=== PATIENT | male | born 2000 | race Caucasian/White ===

== ENCOUNTER 2024-01-24 09:49 | Emergency (ER) | payer BC, SELFPAY ==
[2024-01-24 09:54] VITALS: BP 134/81; PULSE 94; RESP 16; TEMP 36.9; O2SAT 96; BMI 30.8
--- NOTE | 2024-01-24 10:17 | CRLHL7_ITS ---
For Patients: As a result of the Cures Act, medical imaging exams and procedure reports are released immediately into your electronic medical record. You may view this report before your referring provider. If you have questions, please contact your health care provider. INDICATION: Cat bite. TECHNIQUE: Three views of the left hand. FINDINGS: Soft tissue swelling in the hand. No fracture, dislocation, radiopaque foreign body, or subcutaneous gas identified. Dictated by Larry Mejias MD @ 01/24/2024 11:01:38 AM (Electronically Signed)
[2024-01-24 10:37] LABS: Basophils Absolute Auto 0.03 K/uL (0.00-0.30); Basophils Percent Auto 0.5 % (0.0-3.0); Eosinophils Absolute Auto 0.01 K/uL (0.00-0.50); Eosinophils Percent Auto 0.2 % (0.0-7.0); Hematocrit 47.7 % (37.0-53.0); Hemoglobin* 15.8 gm/dL (13.5-17.5); Lymphocytes Percent Auto 15.7 % (20-44); Mean Corpuscular HGB Conc 33 gm/dL (32-36); Mean Corpuscular Hemoglobin 30 pg (26-34); Mean Corpuscular Volume 91 fL (80-100); Monocytes Percent Auto 17.4 % (0.0-11.0); Neutrophils Absolute Auto 4.14 K/uL (1.7-7.0); Neutrophils Percent Auto 66.2 % (42.0-72.0); Platelet Count* 159 K/uL (140-440); RDW Coefficient of Variation % 12.2 % (11.5-15.5); Red Blood Count 5.24 m/uL (4.30-5.90); White Blood Count* 6.25 K/uL (4.50-11.00)
[2024-01-24 10:38] LABS: Slide Review Reflex No
[2024-01-24 10:49] LABS: Albumin* 4.9 g/dL (3.3-5.0); Chloride* 102 mmol/L (96-114)
[2024-01-24 10:50] LABS: Sodium* 137 mmol/L (135-149)
[2024-01-24 10:52] LABS: Creatinine* 0.7 mg/dL (0.5-1.5); Est. Creatinine Clearance* 210.38; Estimated Glomerular Filt Rate 134 ml/min
[2024-01-24 10:53] LABS: Alanine Aminotransferase* 19 U/L (4-50); Alkaline Phosphatase* 76 U/L (40-150); Anion Gap 8 mEq/L (7-15); Aspartate Amino Transferase* 22 U/L (12-35); Bilirubin Total* 1.4 mg/dL (0.1-1.5); Blood Urea Nitrogen* 13 mg/dL (5-24); Carbon Dioxide* 27 mmol/L (20-32); Glucose* 107 mg/dL (60-115); Total Protein* 7.7 g/dL (6.0-8.3)
[2024-01-24 10:54] LABS: Calcium* 9.1 mg/dL (8.4-10.6)
[2024-01-24 10:56] LABS: C Reactive Protein* 1.4 mg/dL (0.5-1.0)
[2024-01-24 10:59] LABS: Lactate* 0.6 mmol/L (0.5-1.9)
[2024-01-24] MEDS: TETANUS/DIPHTH/PERTUSSIS 0.5 ML SYRINGE IM (11:05)
[2024-01-24 11:29] LABS: Erythrocyte SedimentationRate* < 2 mm/hr (2-15)
--- NOTE | 2024-01-24 11:30 | ED.ANIMALBIT ---
HPI - Animal Bite General Chief Complaint: Animal Bite Stated Complaint: Cat bite L hand Time Seen by Provider: 01/24/24 10:10 History of Present Illness HPI narrative: Patient is a 23-year-old gentleman who was not up-to-date on his tetanus shot who was been on the posterior left hand by his friends CT last night. The CT is an inside cat and is up-to-date on his vaccinations. Patient presents with significant swelling around the puncture site which is on the posterior aspect of the left hand. Patient has had no fevers no chills no night sweats no joint stiffness. The area of induration is confined to the posterior hand on the left. Patient otherwise feels fine. Related Data Home Medications ?Medication ?Instructions ?Recorded ?Confirmed bupropion HCl 300 mg 24 hr tablet, 300 mg PO QAM 04/28/23 01/24/24 extended release (Wellbutrin XL) sertraline 100 mg tablet 150 mg PO DAILY 04/28/23 01/24/24 acetaminophen 01/24/24 Allergies Allergy/AdvReac Type Severity Reaction Status Date / Time No Known Drug Allergies Allergy Verified 01/24/24 09:57 Review of Systems Status of ROS: Reports: 10 or more systems reviewed and unremarkable except as noted in History and below [facility] Social History Smoking Status: Never smoker How often do you have a drink containing alcohol: 2-4 times a month AUDIT-C Alcohol total score: 2 Non-prescribed substance use: marijuana (any form) Exam Narrative: Exam Narrative: EXAM GENERAL: Patient appears comfortable and well. EYES: No scleral icterus. ENT: Tympanic membranes and oropharynx normal. THYROID: no thyroid nodules or thyromegaly. LYMPH: No supraclavicular or cervical lymphadenopathy. SKIN: Visible skin seen during exam normal or with benign process only. EXT: Two small puncture sites that had been previously cleaned and are not draining any foreign material noted on the left hand. Surrounding erythema noted which stops at the MCPs as well as the proximal wrist HEART: Regular rate and rhythm with no murmurs, rubs, or gallops. LUNGS: Clear to auscultation bilaterally with no crackles or wheezes. ABD: Soft, non tender, non distended. PSYCH: Good eye contact, speech is not pressured. Const: Vital Signs, click to edit/add: Vital Signs - 24 hr 01/24/24 09:54 Temperature 98.4 F Pulse Rate [Left P ulse Oximeter] 94 Respiratory Rate 16 Blood Pressure [Ri ght Upper Arm] 134/81 Pulse Oximetry 96 Oxygen Delivery Me thod Room Air Course Course ED Course: Patient seen and examined. Blood cultures x1 CBC comprehensive metabolic panel CRP sed rate x-ray of the left hand ordered. No material to culture. Vital Signs Vital signs: Initial Vital Signs Temperature 98.4 F 01/24/24 09:54 Temperature Source Oral 01/24/24 09:54 Pulse Rate 94 01/24/24 09:54 Respiratory Rate 16 01/24/24 09:54 Blood Pressure 134/81 01/24/24 09:54 Blood Pressure Mean 98 01/24/24 09:54 Blood Pressure Position Sitting 01/24/24 09:54 Pulse Oximetry 96 01/24/24 09:54 Oxygen Delivery Method Room Air 01/24/24 09:54 Vital Signs Temperature 98.4 F 01/24/24 09:54 Pulse Rate 94 01/24/24 09:54 Respiratory Rate 16 01/24/24 09:54 Blood Pressure 134/81 01/24/24 09:54 Pulse Oximetry 96 01/24/24 09:54 Oxygen Delivery Method Room Air 01/24/24 09:54 Temperature 98.4 F 01/24/24 09:54 Pulse Rate 94 01/24/24 09:54 Respiratory Rate 16 01/24/24 09:54 Blood Pressure 134/81 01/24/24 09:54 Pulse Oximetry 96 01/24/24 09:54 Oxygen Delivery Method Room Air 01/24/24 09:54 Medications Administered Medications: Discontinued Medications Generic Name Dose Route Start Last Admin Trade Name Freq PRN Reason Stop Dose Admin Diphtheria/Tetanus/Acell Pertussis 0.5 ml 01/24/24 10:54 01/24/24 11:05 Tetanus/Diphth/Pertussis 0.5 Ml Syringe IM 01/24/24 10:55 0.5 ml .ONCE ONE Administration MDM - Animal Bite MDM Narrative Medical decision making narrative: Patient presents after a cat bite last night with cat bite cellulitis. There is nothing to culture from the site. I did obtain blood cultures. I did cervical the affected area. I did give a g Abhinav updated his tetanus shot. I given the option of staying or going for tried home think is reasonable as he does not appear toxic. Again use given Rocephin in the emergency room we started on Augmentin with primary care follow-up. If he has any fevers chills or extension of the redness proximal to the area then circumscribed he has come back as possible and likely will need IV antibiotics. Tdap updated. Lab Data Labs: Lab Results 01/24/24 01/24/24 Range/Units 10:27 10:57 WBC 6.25 (4.50-11.00) K/uL RBC 5.24 (4.30-5.90) m/uL Hgb 15.8 (13.5-17.5) gm/dL Hct 47.7 (37.0-53.0) % MCV 91 (80-100) fL MCH 30 (26-34) pg MCHC 33 (32-36) gm/dL RDW Coeff of Zaida 12.2 (11.5-15.5) % Plt Count 159 (140-440) K/uL Neut % (Auto) 66.2 (42.0-72.0) % Lymph % (Auto) 15.7 L (20-44) % [place] % (Auto) 17.4 H (0.0-11.0) % Eos % (Auto) 0.2 (0.0-7.0) % Baso % (Auto) 0.5 (0.0-3.0) % Neut # (Auto) 4.14 (1.7-7.0) K/uL Lymph # (Auto) 1.00 (0.90-2.90) K/uL [place] # (Auto) 1.10 H (0.00-0.90) K/UL Eos # (Auto) 0.01 (0.00-0.50) K/uL Baso # (Auto) 0.03 (0.00-0.30) K/uL Abs Immat Gran (auto) 0.00 (0.00-0.30) K/uL Imm/Tot Granulo (auto) 0.0 % ESR < 2 L (2-15) mm/hr Sodium 137 (135-149) mmol/L Potassium 4.0 (3.6-5.1) mmol/L Chloride 102 (96-114) mmol/L Carbon Dioxide 27 (20-32) mmol/L Anion Gap 8 (7-15) mEq/L BUN 13 (5-24) mg/dL Creatinine 0.7 (0.5-1.5) mg/dL Estimated Creat Clear 210.38 Estimated GFR 134 ml/min Glucose 107 (60-115) mg/dL Lactate 0.6 (0.5-1.9) mmol/L Calcium 9.1 (8.4-10.6) mg/dL Total Bilirubin 1.4 (0.1-1.5) mg/dL AST 22 (12-35) U/L ALT 19 (4-50) U/L Alkaline Phosphatase 76 (40-150) U/L C-Reactive Protein 1.4 H (0.5-1.0) mg/dL Total Protein 7.7 (6.0-8.3) g/dL Albumin 4.9 (3.3-5.0) g/dL Discharge Plan Discharge Clinical Impression: Cat bite Patient Disposition: Home, Self-Care Condition: Stable Instructions: Animal Bite (ED) Additional Instructions: Augmentin as directed Tylenol Motrin Follow-up B[facility]AK if symptoms worsen or erythema extends outside of the circled area proximally. Follow-up with your doctor in the next 3-4 days. Activity Level: No Restrictions Discharge Diet: Regular Prescriptions: No Action bupropion HCl [Wellbutrin XL] 300 mg tablet extended release 24 hr 300 mg PO QAM sertraline 100 mg tablet 150 mg PO DAILY acetaminophen Follow Up/Referrals: Provider,Not a Local [Primary Care Provider] - Stand Alone Forms: [employer] Info Instructions
[2024-01-24] MEDS: LIDOCAINE 1% 5 ml (pf) 5 ML VIAL 2.1 ML IM (12:07)
[2024-01-24] MEDS: cefTRIAXone 1 GM VIAL IM (12:07)
--- NOTE | 2024-01-26 19:33 | ED.NURSE ---
patient called about possibly changing abx due to having diarrhea. MD wilkins updated and recommendations to continue and use of probiotic and Imodium given as well as infection symptoms to be seen for again.
== END 2024-01-24 12:23 | disposition home or self-care (01) ==
PROVIDERS: Emergency Provider Internal Medicine
DX: S61.452A Open bite of left hand, initial encounter (principal); W55.01XA Bitten by cat, initial encounter
CPT/HCPCS: 36415; 73130; 80053; 83605; 85025; 85651; 86140; 87040; 90471; 90715; 96372; 99283; 99284; J0696